=== PATIENT | female | born 1980 | race Asian ===

== ENCOUNTER → 2016-11-23 | Outpatient (CLI) | payer BC ==
--- NOTE | 2016-11-23 16:10 | DIAGNOSTIC IMAGING REPORT ---
EXAMINATION: PELVIC ULTRASOUND CLINICAL HISTORY: PELVIC PAIN COMPARISON STUDY: None FINDINGS: The uterus measured 7.7 x 4.0 x 4.0 cm. There is a suspected 11 mm left fundal fibroid. The endometrial stripe measured 6 mm. The right ovary measured 33 x 27 x 31 mm. There is a 21 mm complex right ovarian cyst, likely functional. The left ovary measured 20 x 18 x 23 mm.. There is no ultrasonographic evidence of ovarian torsion. It should be noted that ovarian torsion can be present with normal Doppler ultrasonographic findings. There was no evidence of pathologic free pelvic fluid. IMPRESSION: 1. 11 mm fundal fibroid 2. 21 mm complex right ovarian cyst. This is felt to be functional. Electronically signed by: Sanford Sweeney M.D. 11/23/2016 4:09 PM Dictated Date/Time: 11/23/2016 4:07 PM
== END | disposition home or self-care (01) ==
LOC: C.ULTR 15:16
PROVIDERS: ATTEND Family Medicine
DX: R10.2 Pelvic and perineal pain (principal); D25.9 Leiomyoma of uterus, unspecified; N83.201 Unspecified ovarian cyst, right side

== ENCOUNTER → 2016-12-27 | Outpatient (CLI) | payer BC | END | disposition home or self-care (01) | LOC: C.LAB 19:00 | PROVIDERS: ATTEND Nurse Practitioner | DX: Z20.2 Contact with and (suspected) exposure to infections with a predominantly sexual mode of transmission (principal) ==

== ENCOUNTER → 2017-01-18 | Outpatient (CLI) | payer BC ==
--- NOTE | 2017-01-18 12:23 | MAMMOGRAPHY REPORT ---
BILATERAL DIGITAL DIAGNOSTIC MAMMOGRAM TOMOSYNTHESIS WITH CAD AND TARGETED LEFT ULTRASOUND: 01/18/2017 CLINICAL HISTORY: The patient reports having intermittent left breast pain for approximately 5 years, which has worsened over the last 2 years and is lasting longer. She also reports a "knot "in the le ft lateral breast in the region of pain which she has had for some time. She believes the pain may b e stress related. TECHNIQUE: Breast tomosynthesis in addition to standard 2D mammography was performed. Current study was also evaluated with a Computer Aided Detection (CAD) system. Bilateral CC and MLO 2-D and tomosy nthesis images were obtained. COMPARISON: No prior exams were available for comparison. BREAST COMPOSITION: The tissue of both breasts is extremely dense, which lowers the sensitivity of m ammography. FINDINGS: A square marker hardy the site of pain in the left upper outer quadrant. There are no susp icious masses, calcifications, or areas of architectural distortion noted in either breast mammograph ically. Targeted ultrasound was performed of the area of pain pointed out by the patient, involving the left lower outer and upper outer quadrants laterally. Ultrasound was also performed of the lump pointed o ut by the patient in the left breast at approximately 2:00, 4 cm from the nipple. Sonographically no rmal tissue is seen in these regions, without evidence of a mass or other suspicious sonographic abno rmality. IMPRESSION: ACR BI-RADS CATEGORY 2: BENIGN, TARGETED ULTRASOUND ACR BI-RADS CATEGORY 2: BENIGN No suspicious mammographic or sonographic abnormality at the site of lateral left breast pain and lum p pointed out by the patient. There is no mammographic or targeted sonographic evidence of malignanc y. Recommend clinical follow-up for left breast complaints, and recommend routine bilateral screenin g mammograms starting at the age of 40 unless otherwise clinically indicated. The patient has been verbally notified of the results. Approximately 10% of breast cancers are not detected with mammography. A negative mammographic report should not delay biopsy if a clinically suggestive mass is present. Leyda Gordon M.D. /:01/18/2017 10:49:22 Product Info Specialist: Kinjal CHANG(Kallie)(Parul), [facility] letter sent: Normal 1/2 BI-RADS Code: ACR BI-RADS Category 2: Benign Ultrasound BI-RADS: ACR BI-RADS Category 2: Benign
== END | disposition home or self-care (01) ==
LOC: C.MAMM 09:39
PROVIDERS: ATTEND Family Medicine
DX: N64.4 Mastodynia (principal); N63 Unspecified lump in breast

== ENCOUNTER 2022-12-24 00:34 | Inpatient (IN) ==
[2022-12-24] MEDS ORDERED: SODIUM CHLORIDE 0.9% 250 ML IV PRN (02:21)
[2022-12-24] MEDS ORDERED: LIDOCAINE 1% LOCAL 20 ML VIAL INFIL PRN (02:21)
[2022-12-24] MEDS ORDERED: OXYTOCIN 30 UNITS/500 ML BAG IV PRN ×2 (02:21→07:43)
--- NOTE | 2022-12-24 02:31 | History & Physical Report ---
Date of Service December 24, 2022 Assessment & Plan (1) Fibroid uterus: (2) SROM (spontaneous rupture of membranes): Plan 42 yo G1 at 37 4/7 wga admitted w/ SROM VSS Fetus cat 1 Labor - pt noting ctx more painful, will manage expectantly. Does have large fibroid, most recently 11cms - will plan for T&C GBS neg desires epidural History of Present Illness Chief Complaint: LOF Primary Care Provider: Anatoly Cruz MD 42 yo G1 at 37 4/7 wga presents w/ LOF. +FM and ctx, small amount of VB PNI: Fibroid uterus AMA > 40 Past [employer] Hx: G1 regular cycles denies hx STIs Allergies Allergy/AdvReac Type Severity Reaction Status Date / Time No Known Allergies Allergy Verified 12/16/22 16:10 Home Medications Medication Instructions Recorded Confirmed Type omega-3 fatty acids [Fish Oil] PO 05/18/22 12/16/22 History prenat.vits,danny,[id number] PO 05/18/22 12/16/22 History doxylamine 10 mg-pyridoxine (vit 1 tab PO BID #60 tabs 06/20/22 12/16/22 Rx B6) 10 mg tablet,delayed release (Diclegis) Patient History Medical History Thyroid nodule Uterine fibroid Surgical History History of tooth extraction S/P dilation and curettage Status post biopsy of thyroid gland Family History Father Hypertension Cancer Stroke Lung cancer Aunt Breast cancer Mother Heart disease Social History Smoking Status: Never smoker Second Hand Exposure: No; Do You Dip or Chew Tobacco: No; Hx Alcohol Use: No Hx Substance Use: No Preferred Language: Polish Communication Ability: Effective Communication Ability Comment: Albanian Dock Operator Required: No Beliefs That Will Affect Care: None marital status: Single marital status details: Chely Hart- [phone] Current Living Situation: Spouse Current Living Situation Comment: Lives alone, no pets. current occupational status: employed current occupation: Teacher at [employer] Other Information That Helps Us Care for You: No Feels Safe at Home: Yes Safety Concerns: Feels Safe At This Time Assistive Devices: None Physical Exam Genitourinary: OB Exam Abdomen: + vertex and + estimated weight (7-8) Manual OB Exam: + cervical dilation 2 cm, + cervical effacement 50%, + station - 2 and + amniotic fluid (+nitrazine, pooling. Ferning could not be seen, amnisure +) OB Exam Monitor Tracing: + external FHT monitor used, + external uterine monitor used (q6) and + category I (130/mod/+accel/-decel) Results & Data Vital Signs (Past 12 Hours) Vital Signs Pulse Resp BP 12/24/22 00:49 18 12/24/22 00:47 63 124/78 Laboratory Results OB Labs: Blood Type AB Positive 06/20/22 Antibody Screen NEGATIVE 06/20/22 Hemoglobin 10.1 g/dl (12.0-16.0) L 10/21/22 Hematocrit 30.9 % (37.0-47.0) L 10/21/22 Mean Corpuscular Volume 87.9 fL (80.0-100.0) 06/20/22 Platelet Count 243 K/uL (130-400) 06/20/22 Rubella IgG Antibody Immune (Immune) 06/20/22 Rapid Plasma Reagin Nonreactive (Nonreactive) 06/20/22 Hepatitis B Surface Antigen. NON-REACTIVE (NON-REACTIVE) 06/20/22 Hepatitis C Antibody (EIA) NON-REACTIVE (NON-REACTIVE) 06/20/22 HIV (1&2) Ag and Ab Confirmation NON-REACTIVE (NON-REACTIVE) 06/20/22 Glucose 1 Hour 50 gm Load 137 mg/dl (70-130) H 08/01/22 OB Optional Labs: Chlamydia trachomatis RNA Not Detected (NotDetected) 06/20/22 Neisseria gonorrhoeae RNA Not Detected (NotDetected) 06/20/22 Thyroid Stimulating Hormone (TSH) 0.927 uIu/ml (0.300-4.500) 11/18/22 Labs Reviewed: cf/sma-negative--mln cfdna-low risk--mln neg 2 hr gtt x 2.--akh GBS neg Diagnostic Findings 12/16 EFW 71%, 11.2cm uterus (335ccs) Coding Level of Care Code None Diagnoses Fibroid uterus D25.9 SROM (spontaneous rupture of membranes)
[2022-12-24] MEDS: LACTATED RINGER'S 1,000 ML IV PRN ×3 (03:02→11:49)
[2022-12-24 03:20] LABS: Hematocrit (blood only) 33.5 % (37.0-47.0); Hemoglobin 11.6 g/dl (12.0-16.0); Mean Corpuscular Hemoglobin 30.2 pg (25.0-34.0); Mean Corpuscular Hgb Conc 34.6 g/dL (32.0-36.0); Mean Corpuscular Volume 87.2 fL (80.0-100.0); Mean Platelet Volume 10.4 fL (9.4-12.4); Nucleated RBC # (auto) 0.03 K/uL (0-0.12); Nucleated RBC % (auto) 0.4 %; Platelet Count 216 K/uL (130-400); RDW Coefficient of Variation 15.6 % (11.5-14.5); RDW Standard Deviation 49.8 fL (36.4-46.3); Red Blood Count 3.84 M/uL (4.20-5.40); White Blood Count 8.01 K/ul (4.8-10.8)
[2022-12-24] MEDS ORDERED: NALOXONE HCL 1 MG in SODIUM CHLORIDE 0.9% 1000ML 1,000 ML IV PRN (03:31)
[2022-12-24] MEDS ORDERED: NALOXONE HCL 0.4 MG/1 ML VIAL/CARP IV PRN (03:31)
[2022-12-24] MEDS ORDERED: ROPIVACAINE 0.5% PF 5 MG/ML 20 ML VIAL EPI PRN (03:31)
[2022-12-24] MEDS ORDERED: fentaNYL 2MCG/ML ROPIVACAINE 1.25MG/ML 100 ML BAG EPI PRN (03:31)
[2022-12-24] MEDS ORDERED: fentaNYL citrate PF 100 MCG/2 ML VIAL EPI STA (03:31)
[2022-12-24] MEDS ORDERED: BUPIVACAINE 0.25% PF 30 ML VIAL EPI STA (03:31)
[2022-12-24] MEDS ORDERED: diphenhydrAMINE 50 MG/ML VIAL IV PRN (03:31)
[2022-12-24] MEDS ORDERED: fentaNYL citrate PF 100 MCG/2 ML VIAL EPI PRN (03:31)
[2022-12-24] MEDS ORDERED: LIDOCAINE 2% MPF LOCAL 5 ML VIAL EPI PRN (03:31)
[2022-12-24] MEDS ORDERED: LIDOCAINE 2%/EPINEPHRINE 1:200,000 20 ML PF EPI STA (03:31)
[2022-12-24] MEDS ORDERED: BUPIVACAINE 0.25% PF 30 ML VIAL EPI PRN (03:31)
[2022-12-24] MEDS ORDERED: NALBUPHINE HCL INJ 10 MG/ML AMP IV PRN (03:31)
[2022-12-24] MEDS ORDERED: SODIUM CHLORIDE 0.9% PF INJ 10 ML VIAL EPI PRN (03:31)
[2022-12-24] MEDS ORDERED: SODIUM CHLORIDE 0.9% PF INJ 10 ML VIAL EPI STA (03:31)
[2022-12-24] MEDS ORDERED: ePHEDrine sulfate 50 MG/ML AMP IV PRN (03:31)
--- NOTE | 2022-12-24 03:31 | Anesthesiology Consultation ---
Date of Service December 24, 2022 Assessment & Plan (1) Encounter for pre-operative examination: Chart Review Chart Review: Patient NOT seen in Pre Admission Testing and Acceptable Risk for Labor Epidural Consults Requested none History Height/Weight Height: 5 ft 6 in Weight: 83.007 kg Allergies Allergy/AdvReac Type Severity Reaction Status Date / Time No Known Allergies Allergy Verified 12/16/22 16:10 Medications Home Medications Medication Instructions Recorded Confirmed Last Taken omega-3 fatty acids [Fish Oil] 1 tab PO DAILY 05/18/22 12/24/22 12/23/22 09:00 prenat.vits,danny,gwl-kmyg-jouit 1 tab PO DAILY 05/18/22 12/24/22 12/23/22 09:00 doxylamine 10 mg-pyridoxine (vit 1 tab PO BID #60 tabs 06/20/22 12/24/22 12/23/22 09:00 B6) 10 mg tablet,delayed release (Diclegis) Active Medications Generic Name Dose Route Start Last Admin Trade Name Freq PRN Reason Stop Dose Admin Lactated Ringer's 1,000 mls @ 125 mls/hr 12/24/22 02:21 12/24/22 03:02 Lr IV 12/26/22 02:20 999 mls/hr .Q8H PRN Administration L&D Protocol Protocol Past Medical History Medical History Thyroid nodule Uterine fibroid Past Family History Family History Father Hypertension Cancer Stroke Lung cancer Aunt Breast cancer Mother Heart disease Past Surgical History Surgical History History of tooth extraction S/P dilation and curettage Status post biopsy of thyroid gland RESULTS PENDING Social History Smoking Status: Never smoker Do You Dip or Chew Tobacco: No Hx Alcohol Use: No Hx Substance Use: No substance use type: does not use Physical Exam Vital Signs Last Vital Signs Pulse 63 12/24/22 00:47 Resp 18 12/24/22 00:49 BP 124/78 12/24/22 00:47 Testing Laboratory Results 12/24/22 02:40
[2022-12-24] MEDS ORDERED: fentaNYL 2MCG/ML ROPIVACAINE 1.25MG/ML 100 ML BAG EPI ONE (03:32)
[2022-12-24] MEDS ORDERED: ePHEDrine sulfate 50 MG/ML AMP ONE (03:32)
[2022-12-24] MEDS ORDERED: BUPIVACAINE 0.25% PF 30 ML VIAL ONE (03:32)
[2022-12-24] MEDS ORDERED: LIDOCAINE 2%/EPINEPHRINE 1:200,000 20 ML PF ONE (03:32)
[2022-12-24] MEDS ORDERED: fentaNYL citrate PF 100 MCG/2 ML VIAL ONE (03:32)
[2022-12-24] MEDS ORDERED: SODIUM CHLORIDE 0.9% PF INJ 10 ML VIAL ONE (03:32)
--- NOTE | 2022-12-24 10:27 | Labor Progress Brief Note ---
Date of Service December 24, 2022 Subjective Delayed entry. Care assumed at 0830 this AM. 42yo nulligravida with large fibroids and AGA EFW noted. SROM at home prior to arrival, with IOL vs augmentation. Patient comfortable with epidural. On pitocin at 8 mu/min Assessment & Plan (1) SROM (spontaneous rupture of membranes): Plan: Continue pit, epidural. Patient is t&c for blood given her significant fibroids in anticipation of increased risk for CSec and PPH. Admission and Anticipated Discharge Date Admission Date: December 24, 2022 Physical Exam Genitourinary: /-2 [place] Q3 FHT Cat 1 Results & Data Vital Signs (Past 12 Hours) Vital Signs Temp Pulse Resp BP Pulse Ox 12/24/22 00:49 18 12/24/22 10:19 64 98 12/24/22 10:10 18 12/24/22 10:10 97.7 F 18 12/24/22 09:30 18 12/24/22 09:30 18 12/24/22 10:14 64 118/64 99 12/24/22 10:09 79 100 12/24/22 10:04 66 98 12/24/22 10:00 61 99/58 L 12/24/22 09:59 60 100 12/24/22 09:54 69 100 12/24/22 09:49 66 99 12/24/22 09:44 68 98 12/24/22 09:45 67 112/60 12/24/22 09:39 71 99 12/24/22 09:34 68 98 12/24/22 09:29 76 104/61 97 12/24/22 09:24 66 99 12/24/22 09:19 69 98 12/24/22 09:16 65 123/61 12/24/22 09:14 74 99 12/24/22 08:15 97.7 F 12/24/22 09:00 18 12/24/22 09:00 18 12/24/22 08:30 18 12/24/22 08:30 18 12/24/22 09:09 76 99 12/24/22 09:04 68 98 12/24/22 08:59 67 98 12/24/22 08:54 73 100 12/24/22 08:49 80 98 12/24/22 08:44 69 98/56 L 98 12/24/22 08:39 71 98 12/24/22 08:34 90 100 12/24/22 08:29 75 99 12/24/22 08:24 82 100 12/24/22 08:19 72 98 12/24/22 08:16 68 97/52 L 12/24/22 08:14 79 99 12/24/22 08:09 86 100 12/24/22 08:08 71 91/50 L 12/24/22 08:00 18 12/24/22 08:00 18 12/24/22 08:04 69 99 12/24/22 08:01 76 83/45 L 12/24/22 07:59 89 99 12/24/22 07:54 72 98 12/24/22 07:49 94 H 98 12/24/22 07:44 71 93/55 L 97 12/24/22 07:39 70 97 12/24/22 07:34 100 H 98 12/24/22 07:30 75 18 102/63 12/24/22 07:29 72 98 12/24/22 07:24 69 99 12/24/22 07:19 93 H 97 12/24/22 07:15 66 115/66 12/24/22 07:14 72 98 12/24/22 07:09 78 98 12/24/22 07:04 84 99 12/24/22 06:59 71 100 12/24/22 07:00 97.9 F 72 18 117/60 12/24/22 06:54 74 98 12/24/22 06:49 70 99 12/24/22 06:44 80 99 12/24/22 06:45 80 108/68 12/24/22 06:39 83 99 12/24/22 06:34 80 98 12/24/22 06:31 76 107/66 12/24/22 06:29 71 98 12/24/22 06:24 79 98 12/24/22 06:19 71 98 12/24/22 06:16 88 105/59 L 12/24/22 06:00 18 12/24/22 06:00 97.9 F 18 12/24/22 06:14 79 100 12/24/22 06:09 77 99 12/24/22 06:04 74 99 12/24/22 05:59 99 12/24/22 05:59 92 H 12/24/22 05:59 88 107/58 L 12/24/22 05:56 75 108/65 12/24/22 05:54 76 98 12/24/22 05:53 73 106/59 L 12/24/22 05:49 96 H 98 12/24/22 05:47 76 109/62 12/24/22 05:44 79 120/64 99 12/24/22 05:41 96 H 97/71 L 12/24/22 05:39 84 98 12/24/22 05:38 70 107/65 12/24/22 05:35 74 103/62 12/24/22 05:34 74 98 12/24/22 05:33 96 H 106/63 12/24/22 05:29 84 98 12/24/22 05:27 79 93 12/24/22 05:26 82 110/71 12/24/22 05:24 80 98 12/24/22 05:23 72 118/65 12/24/22 05:19 100 H 98 12/24/22 05:20 100 H 106/71 12/24/22 05:17 71 120/75 12/24/22 05:14 98 12/24/22 05:14 86 12/24/22 05:14 78 113/73 12/24/22 05:11 102 H 100/75 12/24/22 05:09 91 H 99 12/24/22 05:08 81 108/74 12/24/22 05:05 77 113/70 12/24/22 05:04 82 99 12/24/22 05:02 89 104/67 12/24/22 04:59 76 112/71 98 12/24/22 04:56 80 121/76 12/24/22 04:54 107 H 98 12/24/22 04:53 70 116/72 12/24/22 04:49 86 95 12/24/22 04:50 77 119/70 12/24/22 04:47 72 115/68 12/24/22 04:44 70 120/71 99 12/24/22 04:41 97 H 115/76 12/24/22 04:39 86 99 12/24/22 04:38 74 115/72 12/24/22 04:35 95 H 118/84 12/24/22 04:34 99 H 100 12/24/22 04:32 78 109/76 12/24/22 04:29 93 H 113/80 99 12/24/22 04:26 78 123/77 12/24/22 04:24 81 98 12/24/22 04:23 93 H 110/78 12/24/22 04:19 93 H 99 12/24/22 04:20 84 112/79 12/24/22 04:17 86 105/78 12/24/22 04:14 100 12/24/22 04:14 97 H 12/24/22 04:14 92 H 108/76 12/24/22 04:11 93 H 112/83 12/24/22 04:09 78 100 12/24/22 04:08 85 116/84 12/24/22 04:05 94 H 109/78 12/24/22 04:04 88 99 12/24/22 04:02 72 120/77 12/24/22 03:59 76 122/77 100 12/24/22 03:56 74 118/77 12/24/22 03:54 69 100 12/24/22 03:49 100 12/24/22 03:49 79 12/24/22 03:49 79 134/91 12/24/22 03:36 20 12/24/22 03:36 97.9 F 20 12/24/22 00:47 63 124/78 Coding Level of Care Code None Diagnoses SROM (spontaneous rupture of membranes)
[2022-12-24] MEDS ORDERED: ONDANSETRON INJ 2 MG/ML 2 ML VIAL IV PRN (12:53)
[2022-12-24] MEDS ORDERED: ONDANSETRON INJ 2 MG/ML 2 ML VIAL ONE (12:55)
--- NOTE | 2022-12-24 16:51 | Delivery Summary ---
Vaginal Delivery Summary Date of Service December 24, 2022 Vaginal Delivery Summary DIAGNOSES: 1. [place] intrauterine at 37w4d gestation. 2. Spontaneous onset of labor / SROM 3. Group B Streptococcus Neg. PROCEDURE: Spontaneous vaginal delivery and repair of second degree perineal and small R periurethral laceration. SURGEON: Evie Carreon MD. TELEVISION ACTOR: None. ESTIMATED BLOOD LOSS: 300 mL. COMPLICATIONS: None. PLACENTA: Spontaneous and intact with a 3-vessel cord. DISPOSITION: Stable to labor and delivery. DESCRIPTION: The patient pushed well and brought the head to in DOA position. The 's head was allowed to deliver with contraction force and no further active pushing, with the perineum protected during this time. There was no nuchal cord. The left shoulder was anterior. The shoulders and body delivered without any difficulty, and the infant was placed on the maternal abdomen. It was vigorous and moving all extremities, and making respiratory efforts. The cord was doubly clamped by the MD and then cut by the FOB. The placenta delivered spontaneously and was noted to be intact and with a 3VC. The cervix, vagina and perineum were examined and were found to have a second degree perineal and a small R periurethral laceration which were repaired using vicryl suture, for good hemostasis and cosmesis, and including a crown suture to rebuild the perineal body. The fundus was firm and lochia minimal immediately after delivery. [facility] Vaginal Delivery Charge Vaginal Delivery Codes: 71121 global code for the antepartum, delivery, and post-
[2022-12-24] MEDS ORDERED: HYDROCORTISONE ACETATE 25 MG SUPP PR PRN (17:11)
[2022-12-24] MEDS ORDERED: oxyCODONE/ACETAMINOPHEN 5mg/325mg TAB PO PRN (17:11)
[2022-12-24] MEDS ORDERED: DIPHTHERIA/TETANUS/PERTUSSIS Vaccine (Tdap, Age 7+yrs) 0.5mL SYR/VL IM ONE (17:11)
[2022-12-24] MEDS ORDERED: ACETAMINOPHEN 325 MG TAB PO PRN (17:11)
[2022-12-24] MEDS ORDERED: bisacodyL 10 MG SUPP PR PRN (17:11)
[2022-12-24] MEDS ORDERED: BENZOCAINE 20% AER SPR 82.5 GM CAN EXT PRN (17:11)
--- NOTE | 2022-12-24 18:40 | Anesthesia Procedure Note ---
Date of Service December 24, 2022 Anesthesia Post Epidural Note Vital Signs Vital Signs: Temp Pulse Resp BP Pulse Ox 36.7 C 78 18 109/58 L 97 12/24/22 16:54 12/24/22 18:34 12/24/22 17:55 12/24/22 18:25 12/24/22 18:34 Notes Mental Status: alert / awake / arousable Nausea / Vomiting: adequately controlled Pain: adequately controlled Airway Patency, RR, SpO2: stable & adequate BP & HR: stable & adequate Hydration State: stable & adequate Neuraxial Anesthesia: was administered and sensory block is resolving Anesthetic Complications: no major complications apparent Epidural: Removed without complications and With tip intact
[2022-12-24] MEDS: DOCUSATE SODIUM 100 MG CAP PO SCH (20:20)
[2022-12-25] MEDS: IBUPROFEN 600 MG TAB PO PRN ×4 (02:55→21:26)
--- NOTE | 2022-12-25 07:21 | Obstetrical Progress Note ---
Date of Service December 25, 2022 Assessment & Plan (1) Normal vaginal delivery: Normal recovery PPD1 and patient desires stay until PPD2, wants more help with nursing and time to complete necessary items including naming of baby. No c/o currently. Questions answered about her fibroids; observation for now to see how they will change with uterine involution, future management pending. Subjective Ambulation: ambulating normally Voiding: no voiding problems Passing Gas:: Yes Diet Tolerance:: regular diet Lochia:: Small Feeding Type:: breast feeding Had emesis yesterday after eating, but feels the nausea is gone now. Physical Exam Constitutional WD/WN, vitals as above Eyes PERRL, conjunctivae normal, anicteric sclerae Neck normal visual inspection Respiratory normal respiratory effort and able to speak in complete sentences; no respiratory distress and no labored breathing Cardiovascular Rate/Rhythm: regular rate and regular rhythm Extremities: no edema Chest (Breasts) Chest: normal inspection of chest Gastrointestinal (Abdomen) Inspection/Auscultation: abdomen normal to inspection Soft, postgravid Psychiatric A+Ox3, euthymic affect Genitourinary OB Exam Abdomen: + fundal height Fundus: + firm and + relation to umbilicus (fundus just below umbilicus); not tender Results & Data Vital Signs (Past 12 Hours) Vital Signs Temp Pulse Pulse Resp BP BP Pulse Ox 12/25/22 02:51 98.1 F 68 18 102/61 98 12/24/22 22:57 98.2 F 69 18 112/76 97 12/24/22 19:23 99.7 F H 74 18 110/57 L 12/24/22 19:23 74 12/24/22 19:23 110/57 L O2 Del Method 12/25/22 02:51 Room Air 12/24/22 22:57 Room Air 12/24/22 19:23 12/24/22 19:23 12/24/22 19:23
[2022-12-25 07:26] LABS: Hematocrit (blood only) 25.5 % (37.0-47.0); Hemoglobin 8.6 g/dl (12.0-16.0); Mean Corpuscular Hemoglobin 30.1 pg (25.0-34.0); Mean Corpuscular Hgb Conc 33.7 g/dL (32.0-36.0); Mean Corpuscular Volume 89.2 fL (80.0-100.0); Platelet Count 177 K/uL (130-400); RDW Coefficient of Variation 15.9 % (11.5-14.5); RDW Standard Deviation 50.6 fL (36.4-46.3); Red Blood Count 2.86 M/uL (4.20-5.40); White Blood Count 7.78 K/ul (4.8-10.8)
[2022-12-25] MEDS: PRENATAL VITAMIN 1 TAB PO SCH (08:25)
[2022-12-25] MEDS: DOCUSATE SODIUM 100 MG CAP PO SCH ×2 (08:25→21:26)
[2022-12-25] MEDS ORDERED: bisacodyL 5 MG TABEC PO SCH (20:00)
[2022-12-26 06:26] LABS: Hematocrit (blood only) 27.1 % (37.0-47.0); Hemoglobin 9.2 g/dl (12.0-16.0)
--- NOTE | 2022-12-26 07:26 | Obstetrical Progress Note ---
Date of Service <Chelsie Atkinson DO - Last Filed: 12/26/22 07:26> December 26, 2022 Assessment & Plan <Chelsie Atkinson DO - Last Filed: 12/26/22 07:26> (1) care following vaginal delivery: Feels well today. Eating well, voiding well, ambulating well. Pain well controlled with prn analgesics. Routine care; OOB, ambulation, continue regular diet. Plan for discharge today. After discharge will have 6 week follow-up with Dr. Carreon. <Evie Carreon MD - Last Filed: 12/26/22 07:35> (1) care following vaginal delivery: Subjective <Chelsie Atkinson DO - Last Filed: 12/26/22 07:26> Pt is a 42 y/o female who is PPD#2 following at 37 4/7 weeks. Pt noted to have a fibroid uterus. Pt is doing well today and states that she is feeling good. She has been ambulating, voiding, and passing gas. She has been eating regular diet without nausea or vomiting. She states that most of her abdominal pain is with breast feeding, and otherwise is a 3/10 that is improved with prn analgesics. She notes very minimal lochia. She is breast feeding. Constitutional: no fever, no chills or no sweats Respiratory: no dyspnea Cardiovascular: no chest pain or no palpitations Breast: no breast pain Genitourinary (female): no dysuria Neurologic: no headache(s) no changes in vision, no headaches Physical Exam <Chelsie Atkinson DO - Last Filed: 12/26/22 07:26> General: Alert, oriented. No acute distress. Cardiac: Regular rate and rhythm, no murmurs, rubs, or gallops. Respiratory: Clear to auscultation bilaterally, no wheezes/rales/rhonchi. No increased work of breathing. Symmetrical chest rise. No respiratory distress. Abdomen: Soft, nontender, nondistended. Bowel sounds present. Uterus: Uterine fundus firm, palpable below the umbilicus. Lower extremities: No lower extremity edema or swelling. No deep calf pain. Results & Data <Chelsie Atkinson DO - Last Filed: 12/26/22 07:26> Vital Signs (Past 12 Hours) Vital Signs Temp Pulse Resp BP Pulse Ox O2 Del Method 12/26/22 03:01 36.5 C 62 16 104/68 98 Room Air 12/26/22 00:25 36.6 C 65 18 101/67 97 Room Air 12/25/22 21:00 36.6 C 65 18 121/73 98 Room Air <Evie Carreon MD - Last Filed: 12/26/22 07:35> Co-Signing Physician Notes Resident Physician Supervision Note: I interviewed and examined the patient. Discussed with Dr. Atkinson and agree with findings and plan as documented in the note. Any exceptions or clarifications are listed here: [ ] Documented By: Evie Carreon MD, FACOG Resident Activity Tracking <Chelsie Atkinson DO - Last Filed: 12/26/22 07:26> Resident Involvement: Resident Care Provided Care Provided: OB Delivery
[2022-12-26] MEDS: DOCUSATE SODIUM 100 MG CAP PO SCH (08:58)
[2022-12-26] MEDS: PRENATAL VITAMIN 1 TAB PO SCH (08:58)
== END 2022-12-26 16:10 | disposition home or self-care (01) | DRG 807 ==
LOC: OPB 00:34 → 4S1 00:40 → 4E2 19:41